=== PATIENT | male | born 2000 | race Caucasian/White ===

== ENCOUNTER 2024-08-24 12:17 | Outpatient (REF) | payer MEDICAID, SELFPAY ==
[2024-08-24 13:39] LABS: Estimated Average Glucose 111 mg/dL; Hemoglobin A1C 154.4271 umol/L; Hemoglobin A1c % 5.5 % (<6.0); Total Hemoglobin (HGBA1C) 4198.3999 umol/L
[2024-08-24 13:45] LABS: Alanine Aminotransferase 105 U/L (0-40); Albumin Level 4.3 g/dL (3.5-5.0); Alkaline Phosphatase 90 U/L (39-117); Anion Gap 14 (12-20); Aspartate Amino Transferase 42 U/L (5-37); Bilirubin Total 0.4 mg/dL (0.0-1.0); Blood Urea Nitrogen 12 mg/dL (9-16); Calcium 9.7 mg/dL (8.4-10.2); Carbon Dioxide 26 mmol/L (22-29); Chloride 106 mmol/L (96-108); Cholesterol 106 mg/dL (<200); Estimated Glomerular Filt Rate > 60; Glucose Random 99 mg/dL (60-115); HDL Cholesterol 39 mg/dL (>40); LDL Cholesterol Calculated 57 mg/dL (<100); Potassium 4.2 mmol/L (3.3-5.1); Sodium 142 mmol/L (135-145); Total Protein 7.6 g/dL (6.5-8.0); Triglycerides 51 mg/dL (<150)
[2024-08-24 14:01] LABS: Syphilis Screen Nonreactive (Nonreactive)
[2024-08-24 14:02] LABS: HBS Num1 54.05 mIU/mL (0-7.99); HBsAGNum1 0.41 S/CO (0.00-0.99); HIV AB/AG Nonreactive (Nonreactive); HIV Num 1 0.07 S/CO (0.00-0.99); Hepatitis B Surface Antigen Negative (Negative); ~HepC Num1 0.26 S/CO (0.00-0.79); ~Hepatitis B Surface Antibody REACTIVE (Nonreactive); ~Hepatitis C Antibody Nonreactive (Nonreactive)
[2024-08-25 08:41] LABS: HBc Num1 0.16 S/CO (0.00-0.79); Hepatitis B Core Antibody Nonreactive (Nonreactive)
== END 2024-08-24 12:18 | disposition home or self-care (01) ==
LOC: HO.HHCL 12:17
PROVIDERS: Visit Provider Registered Nurse
DX: E66.812 Obesity, class 2 (principal); E66.09 Other obesity due to excess calories; Z11.3 Encounter for screening for infections with a predominantly sexual mode of transmission
CPT/HCPCS: 36415; 80053; 80061; 83036; 86704; 86706; 86780; 86803; 87340; 87389

== ENCOUNTER 2025-04-05 13:21 | Outpatient (REF) | payer MEDICAID, SELFPAY ==
--- OUTSIDE RECORDS SUMMARY | 2025-04-05 11:30 | XMS_ITS | Encounter Summary ---
Author Organization [employer] Address [address] [place] [address] Care Team Providers Care Laboratory [facility] Name Role Phone Richards [facility] Primary Care Provider [phone] Encounter Details Date Type Department Care Team ([facility] st Contact Info) Description 04/05/2025 11:30 AM EDT Office Visit [facility] [address] [address], [place] [id number] [place], [facility] [address], [place] [phone] Folliculitis (Primary Dx); Furuncle Social History Tobacco Use Types Packs/Day Years Used Date Smoking Tobacco: Never Smokeless Tobacco: Never Alcohol Use Standard Drinks/Week Comments Never 0 (1 standard drink = 0.6 oz pur e alcohol) Depression Answer Date Recorded Patient Health Questionnaire-9 Score 0 08/24/2024 Patient Health Questionnaire-9 Score 0 08/24/2024 Last PHQ-9: Questionnaire Data Not on file 1 10/24/2023 Housing Stability Answer Date Recorded What is your housing situation today? I have shakila ferguson 08/24/[address] you li ve. Do you have problems with any of the following? None of the above 08/24/2024 Food Insecurity Answer Date Recorded Within the past 12 months, y ou worried that your food would run out before you got money to buy more: Never True 08/24/2024 Within the past 12 months,th e food you bought just didn't last and you didn't have enough money to get more: Never True Transportation Answer Date Recorded In the past 12 months, has l ack of transportation kept you from medical appts, meetings, work or from getting things needed for daily living? No 08/24/2024 Utilities Answer Date Recorded In the past 12 months, has t he electric, gas, oil or water company threatened to shut off services in your home? No 08/24/2024 Depression Answer Date Recorded Patient Health Questionnaire-2 Score 0 08/24/2024 Internet Access Answer Date Recorded Internet Access Q1 Yes 08/24/2024 Internet Access Q2 Not on file 08/24/2024 Sex and Gender Information Value Date Recorded Sex Assigned at Male 07/28/2022 10:26 AM EDT Legal Sex Male 10:26 AM EDT Gender Identity Male 07/28/2022 10:26 AM EDT Sexual Orientation Straight 07/28/2022 10 :26 AM EDT documented as of this encounter Last Filed Vital Signs Vital Sign Reading Time Taken Comments Blood Pressure 132/70 04/05/2025 11:32 AM EDT Pulse 88 04/05/2025 11:32 AM EDT Temperature 36.6 C (97.8 F) 04/05/2025 11:32 AM EDT Respiratory Rate 16 04/05/2025 11:32 AM EDT Oxygen Saturation - - Inhaled Oxygen Concentration - - Weight 115 kg (253 lb 9.6 oz) 04/05/2025 11:32 A M EDT Height 170.8 cm (5' 7.25 ) 04/05/2025 11:32 AM E DT Body Mass Index 39.42 04/05/2025 11:32 AM EDT documented in this encounter Plan of Treatment Scheduled Orders Name Type Priority Associated Diagnoses Orde r Schedule Wound culture Microbiology Routine Furuncle Ordered: 04/05/2025 documented as of this encounter Visit Diagnoses Diagnosis Folliculitis- Primary Other specified disease of hair and hair follicles Furuncle Carbuncle and furuncle of unspecified site documented in this encounter Additional Health Concerns Assessment Noted Time PHQ-9 Depression Total Score: 0 08/24/20 24 11:27 AM EST documented as of this encounter Care Teams Laboratory Miller Relationship Specialty Start Date End Date Kae Small FNP [address] [place] [id number] PCP - General Family Medicine 05/15/22 documented as of this encounter
[2025-04-08 04:23] LABS: TS Negative Control Passed; TS Panel A 1; TS Panel B 0; TS Positive Control Passed; TSpotTB Negative (Negative)
== END 2025-04-05 13:22 | disposition home or self-care (01) ==
LOC: HO.HHCL 13:21
PROVIDERS: PCP Registered Nurse; Visit Provider Registered Nurse
DX: Z11.1 Encounter for screening for respiratory tuberculosis (principal)
CPT/HCPCS: 36415; 86481; 87070; 87205